=== PATIENT | male | born 1955 | race Caucasian/White ===

== ENCOUNTER 2016-06-13 07:59 | Day surgery (SDC) | payer OTHER ==
[~2016-06-13 07:59] MED LIST: EPINEPHRINE INJ 1 MG/10 ML DISP.SYRIN ONE; FLUMAZENIL INJ 0.5 MG/5 ML VIAL IV ONE; GLUCAGON,HUMAN RECOMB 1 MG INJ ONE; GLYCOPYRROLATE INJ 0.4 MG/2 ML VIAL ONE; MIDAZOLAM 2 MG/2 ML INJ ONE; NALOXONE HCL INJ/PF 0.4 MG/1 ML SDV ONE; ONDANSETRON HCL INJ/PF 4 MG/2 ML SDV ONE; PROMETHAZINE HCL INJ 25 MG/1 ML VIAL ONE
[2016-06-13] MEDS: MIDAZOLAM 2 MG/2 ML INJ ONE ×2 (08:24→08:30)
[2016-06-13] MEDS: FENTANYL CITRATE INJ/PF 100 MCG/2 ML AMPUL ONE ×2 (08:27→08:35)
--- NOTE | 2016-06-13 08:57 | Operative Report ---
Operative Report DATE OF SURGERY: 06/13/16 PREOPERATIVE DIAGNOSIS: 1. Personal history of colon cancer. 2. Personal history of colon resection. 3. Personal history of colon polyps POSTOPERATIVE DIAGNOSIS: 1. Hypertrophied because and appendiceal orifice. 2. Ascending colon lesion OPERATION: Total colonoscopy to cecum with further document. Cold forceps biopsy of appendiceal orifice. Cold forceps mucosal biopsy of acsending colon lesion SURGEON: FERMIN THACKER ANESTHESIA: Moderate Sedation TISSUE REMOVED OR ALTERED: Tissue biopsies COMPLICATIONS: None ESTIMATED BLOOD LOSS: scant INTRAOPERATIVE FINDINGS: See below PROCEDURE: Obtaining informed consent the patient was taken from the preoperative holding area to the main endoscopy suite where monitoring devices were attached to the patient. Plan and surgical timeout were conducted The patient was placed in the left lateral decubitus position with knees to chest. A perianal examination was performed. There was no visible or palpable anorectal pathology. Sphincter tone was felt to be normal. Posterior surface of the prostate gland was not enlarged. The flexible adult colonoscope was advanced through the anal rectal canal, all the way to the cecum. Utilization of the cecum was achieved and the ileocecal valve, the appendiceal orifice and transillumination of the anterior abdominal wall. The mucosa surrounding the appendiceal orifice was slightly hypertrophied. No discrete lesion. Cold forceps biopsy obtained. Bleeding minimal. In the Descending colon just after the first fold beyond the cecum was a bilobed smooth covered sessile 11/2 cm lesion. Photographs were taken. Cold forceps biopsy was obtained and submitted as a descending colon lesion. Bleeding was negligible. . This was an excellent study on the well-prepped bowel. There was some residual green liquid and minimally particulate stool which aspirated easily. The colonoscope was withdrawn slowly and methodically checking the mucosa carefully. There was no evidence of tumor, stricture, bleeding.. There was no evidence of diverticuloses. There was a suggestion of a change in colonic architecture and approximately 30 mL possibly consistent with previous colon resection .The scope was slowly withdrawn through the anal rectal canal. Complete visualization of the rectum was achieved with photodocumentation. The scope was withdrawn to the patient's anus. The patient tolerated the procedure well and was taken to the recovery area in stable condition. Follow-up Colonoscopy will depend upon the final pathology report of the descending colon lesion.
--- NOTE | 2016-06-13 08:59 | PDOC DISCHARGE SUMMARY ---
Discharge Summary (SDC) - Discharge Final Diagnosis: 1. Personal history of colon cancer, status post partial colectomy 2. Ascending colon lesion Date of Surgery: 06/13/16 Discharge Date: 06/13/16 Condition: Good Treatment or Instructions: [address] [address] POST ENDOSCOPY DISCHARGE INSTRUCTIONS 1. Diet: Start clear liquids that a regular diet as tolerated. 2. Resume all preoperative medications. All oral anticoagulants and aspirins can be resumed 24 hours after procedure. 3. If a polypectomy was performed some bleeding per rectum may occur. This should stop within 3 days. If not, please contact the office. 4. If you had a colonoscopy you may experience some bloating and delayed return of normal bowel function for several days, your regular bowel movement pattern should resume within a week. 5. Please contact [facility] at to make an appointment with Dr. Batres for 1 to 3 weeks following procedure. 6. If you have any questions or concerns regarding your care,treatment plan or follow up, please contact our office. 7. Per clinical guidelines we recommend you undergo a repeat colonoscopy at a time interval based on the final pathology report of the ascending colon lesion. Discharge Activity: Activity As Tolerated Home Care Assistance: None Needed Report the Following to Your Physician Immediately: Shortness of Breath, Increase in Pain, Fever over 101 Degrees
[2016-06-13 10:00] VITALS: BP 112/66
== END 2016-06-13 10:00 | disposition home or self-care (01) ==
LOC: END 07:59
PROVIDERS: ATTEND Surgery
PROC: 0DBJ8ZX Excision of Appendix, Via Natural or Artificial Opening Endoscopic, Diagnostic (ICD-10-PCS; 2016-06-13)
PROC: 0DBK8ZX Excision of Ascending Colon, Via Natural or Artificial Opening Endoscopic, Diagnostic (ICD-10-PCS; principal; 2016-06-13 08:15)
DX: Z12.11 Encounter for screening for malignant neoplasm of colon (principal); K63.9 Disease of intestine, unspecified; Z85.038 Personal history of other malignant neoplasm of large intestine; Z86.010 Personal history of colon polyps; Z90.49 Acquired absence of other specified parts of digestive tract; Z80.0 Family history of malignant neoplasm of digestive organs; Z88.2 Allergy status to sulfonamides
CPT/HCPCS: 45380; 88305 ×2; J2250; J3010; J0171; J1610; J2310; J2405; J2550; J3490

== ENCOUNTER 2019-12-09 14:43 | Emergency (ER) | payer SELFPAY ==
[2019-12-09 14:58] VITALS: BP 121/78
--- NOTE | 2019-12-09 15:17 | ER Document Report ---
ED Medical Screen (RME) - General Chief Complaint: Finger Injury Stated Complaint: FINGER LACERATION Time Seen by Provider: 12/09/19 15:14 Primary Care Provider: DONATO SOARES MD [Primary Care Provider] - Follow up as needed Mode of Arrival: Ambulatory Information source: Patient Notes: 64-year-old male presented to ED for laceration to the right fourth finger. He cut it with a band saw. It is not bleeding at this time. It is a ragged approximately 1 and half centimeter cut. He states his last tetanus was this summer. He states he has a history of colon cancer. He states he does not smoke he does drink once a month and does not drug. He is alert oriented respirations regular nonlabored speaking in full sentences. I have greeted and performed a rapid initial assessment of this patient. A comprehensive ED assessment and evaluation of the patient, analysis of test results and completion of medical decision making process will be conducted by an additional ED providers. TRAVEL OUTSIDE OF THE [place] IN LAST 30 DAYS: No - Related Data Allergies/Adverse Reactions: Sulfa (Sulfonamide Antibiotics) Allergy (Verified 06/13/16 07:49) Past Medical History - Social History Chew tobacco use (# tins/day): No Frequency of alcohol use: None Drug Abuse: None - Past Medical History Cardiac Medical History: Denies: Hx Coronary Artery Disease, Hx Heart Attack, Hx Hypertension Pulmonary Medical History: Denies: Hx Asthma, Hx Bronchitis, Hx COPD, Hx Pneumonia Neurological Medical History: Denies: Hx Cerebrovascular Accident, Hx Seizures Musculoskeltal Medical History: Denies Hx Arthritis - Immunizations Hx Diphtheria, Pertussis, Tetanus Vaccination: No Physical Exam - Vital signs Vitals: Temp Pulse Resp BP Pulse Ox 98.2 F 77 16 121/78 98 12/09/19 14:57 12/09/19 14:57 12/09/19 14:57 12/09/19 14:57 12/09/19 14:57 Course - Vital Signs Vital signs: Temp Pulse Resp BP Pulse Ox 98.2 F 77 16 121/78 98 12/09/19 14:57 12/09/19 14:57 12/09/19 14:57 12/09/19 14:57 12/09/19 14:57 Doctor's Discharge - Discharge Referrals: DONATO SOARES MD [Primary Care Provider] - Follow up as needed
--- NOTE | 2019-12-09 15:37 | RADIOLOGY REPORT (SQ) ---
EXAM DESCRIPTION: FINGER RIGHT IMAGES COMPLETED DATE/TIME: 12/09/2019 3:24 pm REASON FOR STUDY: Laceration right fourth finger band saw COMPARISON: None. NUMBER OF VIEWS: Three views. TECHNIQUE: AP, lateral, and oblique images acquired of the right fourth finger. LIMITATIONS: None. FINDINGS: MINERALIZATION: Normal. BONES: A saw cut extends about retirement across the base of the 4th distal phalanx. SOFT TISSUES: Soft tissue injury. OTHER: No other significant finding. IMPRESSION: Saw cut extends about retirement across the base of the 4th distal phalanx. COMMENT: SITE OF TRAUMA/COMPLAINT MARKED/STAMP COMPLETED: Yes TECHNICAL DOCUMENTATION: JOB ID: [id number] 2010 [employer]- All Rights Reserved Reading location - IP/workstation name: [email or web address]
--- NOTE | 2019-12-09 19:35 | ER Document Report ---
ED Medical Screen (RME) - General Chief Complaint: Finger Injury Stated Complaint: FINGER LACERATION Time Seen by Provider: 12/09/19 15:14 Primary Care Provider: DONATO SOARES MD [Primary Care Provider] - Follow up as needed Mode of Arrival: Ambulatory Notes: 12/09/19 15:12 - ED [facility] [id number] : 1955 Patient Age: 64 pt arrives to Er today for c/o laceration to right hand 4th digit. pt states he cut it in a band saw. ED Medical Screen (John notes) - General Chief Complaint: Finger Injury Stated Complaint: FINGER LACERATION Time Seen by Provider: 12/09/19 15:14 Primary Care Provider: DONATO SOARES MD [Primary Care Provider] - Follow up as needed Mode of Arrival: Ambulatory Information source: Patient Notes: 64-year-old male presented to ED for laceration to the right fourth finger. He cut it with a band saw. It is not bleeding at this time. It is a ragged approximately 1 and half centimeter cut. He states his last tetanus was this summer. He states he has a history of colon cancer. He states he does not smoke he does drink once a month and does not drug. He is alert oriented respirations regular nonlabored speaking in full sentences. MY NOTES TODAY 64-year-old male arrives with his after he lacerated his radial side of his right ring finger around 1430 this afternoon. He was seen by Shari earlier. The cut is approximately 1.5 cm in length. Patient denies any flexion or extension or sensation problems. Bleeding has fully ceased on my exam time at 1930. X-ray reveals a cut into the tuft of the bone. I discussed this case with Dr. Gagandeep Resendiz orthopedics he will see him on Friday. He advised also antibiotics for this man. The patient will receive sutures and a splint for his right ring finger. TRAVEL OUTSIDE OF THE [place] IN LAST 30 DAYS: No - Related Data Allergies/Adverse Reactions: Sulfa (Sulfonamide Antibiotics) Allergy (Verified 06/13/16 07:49) Past Medical History - General Information source: Patient - Social History Cigarette use (# per day): No Chew tobacco use (# tins/day): No Frequency of alcohol use: None Drug Abuse: None Lives with: Family Family history: Reviewed & Not Pertinent - Past Medical History Cardiac Medical History: Denies: Hx Coronary Artery Disease, Hx Heart Attack, Hx Hypertension Pulmonary Medical History: Denies: Hx Asthma, Hx Bronchitis, Hx COPD, Hx Pneumonia Neurological Medical History: Denies: Hx Cerebrovascular Accident, Hx Seizures Musculoskeltal Medical History: Denies Hx Arthritis - Immunizations Hx Diphtheria, Pertussis, Tetanus Vaccination: No Review of Systems - Review of Systems Constitutional: No symptoms reported EENT: No symptoms reported Cardiovascular: No symptoms reported Respiratory: No symptoms reported Gastrointestinal: No symptoms reported Genitourinary: No symptoms reported Male Genitourinary: No symptoms reported Musculoskeletal: No symptoms reported, See HPI, Joint pain Skin: No symptoms reported, See HPI, Other - Laceration to right ring finger radial side. Hematologic/Lymphatic: No symptoms reported Neurological/Psychological: No symptoms reported Physical Exam - Vital signs Vitals: Temp Pulse Resp BP Pulse Ox 98.2 F 77 16 121/78 12/09/19 14:57 12/09/19 14:57 12/09/19 14:57 12/09/19 14:57 12/09/19 14:57 Interpretation: Normal - HEENT Head: Normocephalic, Atraumatic Eyes: Normal Pupils: PERRL Mucous membranes: Normal Pharynx: Normal Neck: Normal - Respiratory Respiratory status: No respiratory distress Chest status: Nontender Breath sounds: Normal Chest palpation: Normal - Cardiovascular Rhythm: Regular Heart sounds: Normal auscultation Murmur: No - Abdominal Inspection: Normal Distension: No distension Bowel sounds: Normal Tenderness: Nontender Organomegaly: No organomegaly - Rectal Prostate: Other - deferred - Genitourinary Scrotum: Other - deferred - Back Back: Normal - Extremities General upper extremity: Normal inspection Course - Vital Signs Vital signs: Temp Pulse Resp BP Pulse Ox 98.2 F 77 16 121/78 98 12/09/19 14:57 12/09/19 14:57 12/09/19 14:57 12/09/19 14:57 12/09/19 14:57 Procedures - Laceration/Wound Repair Right 4th digit Time completed: 20:33 Wound length (cm): 3.0 Wound's Depth, Shape: Linear Laceration pre-procedure: Shur-Clens applied Volume Anesthetic (mLs): 2 Wound explored: Clean Irrigated w/ Saline (mLs): 1 Wound Debrided: Minimal Wound Repaired With: Sutures, Dermabond Suture Size/Type: 4:0, Prolene Number of Sutures: 4 Layer Closure?: No Post-procedure wound care: Splint applied, Other - Dermabond across the wound and laceration repair. Patient had wound from his palmar surface to the dorsum of his ring finger one half dorsally Post-procedure NV exam normal: Yes - Patient did have numbness to the radial side of his distal ring finger. Complications: No - 1 take Doctor's Discharge - Discharge Clinical Impression: Laceration of ring finger Qualifiers: Encounter type: initial encounter Damage to nail status: without damage Foreign body presence: without foreign body Laterality: right Qualified Code(s): S61.214A - Laceration without foreign body of right ring finger without damage to nail, initial encounter Condition: Good Disposition: HOME, SELF-CARE Instructions: Laceration Care ([facility]) Additional Instructions: Keep wound clean and dry for least 2 to 3 days return to ER as needed especially if signs and symptoms of infection occur. You need to take antibiotics because the wound did enter into the bone. Please follow-up with Dr. Gagandeep Resendiz orthopedics. Sutures out in around 14 days. Prescriptions: Levofloxacin [Levaquin 500 mg Tablet] 500 mg PO DAILY #10 tablet Referrals: DONATO SOARES MD [Primary Care Provider] - Follow up as needed DARLINE RESENDIZ JR, DO [ACTIVE PROVISIONAL STAFF] - Follow up as needed
[2019-12-09] MEDS ORDERED: LIDOCAINE 1% INJ-PF (10 MG/ML) 30 ML SDV ONE (19:37)
[2019-12-09] MEDS ORDERED: LEVOFLOXACIN 500 MG TABLET PO ONE (20:37)
[2019-12-09] MEDS ORDERED: LIDOCAINE 1% INJ (10 MG/ML) 10 ML MDV INJ ONE (20:52)
== END 2019-12-09 21:27 | disposition home or self-care (01) ==
LOC: ER 14:43
DX: S61.214A Laceration without foreign body of right ring finger without damage to nail, initial encounter (principal); W29.8XXA Contact with other powered hand tools and household machinery, initial encounter; R20.0 Anesthesia of skin; Z88.2 Allergy status to sulfonamides
CPT/HCPCS: 99283